=== PATIENT | male | born 1980 | race Caucasian/White ===

== ENCOUNTER 2019-02-09 12:58 | Emergency (ER) | payer OTHER ==
[~2019-02-09] VITALS: Ht 177.8 cm; Wt 86.2 kg
[2019-02-09 13:13] VITALS: Ht 177.8 cm; Wt 86.2 kg
[2019-02-09 16:10] VITALS: BP 127/77
== END 2019-02-09 16:10 | disposition home or self-care (01) ==
LOC: ED 12:58
DX: G43.909 Migraine, unspecified, not intractable, without status migrainosus (principal); R11.2 Nausea with vomiting, unspecified; I10 Essential (primary) hypertension
CPT/HCPCS: J2270; J2405; J7030